=== PATIENT | male | born 1975 | race Caucasian/White ===

== ENCOUNTER 2016-10-07 12:16 | Emergency (ER) | payer MEDICAID ==
[~2016-10-07] VITALS: Ht 170.2 cm; Wt 72.6 kg
--- NOTE | 2016-10-07 12:22 | NUR ---
PT DREA ACCOMPANIED BY PD TO ER BED 09. C/O HALLUCINATION AND SI. PLAN OF SHOOTING AIR INTO HIS VEINS.ADMITS TO USING LSD. 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 DENIES PAIN. PT IS VERBALLY RESPONSIVE AND COOPERATIVE. PLACED ON MONITOR. PLACED ON SI PRECAUTION.
--- NOTE | 2016-10-07 12:24 | NUR ---
DR DEL CASTILLO AT BEDSIDE FOR EVAL.
[2016-10-07] MEDS: IV NS 0.9% 1,000 ML BAG IV ONE (12:33)
[2016-10-07 12:36] LABS: BASOPHILS # (AUTO) 0.5 /CMM (0.0-0.2); BASOPHILS % (AUTO) 3.4 % (0.0-2.0); EOSINOPHILS % (AUTO) 0.1 % (0.0-6.0); HEMATOCRIT 47 % (39-51); HEMOGLOBIN 15.6 g/dL (13.5-17.5); LYMPHOCYTES # (AUTO) 1.8 /CMM (0.8-4.8); LYMPHOCYTES % (AUTO) 11.6 % (20.0-44.0); MEAN CORPUSCULAR HEMOGLOBIN 28 PG (26.0-33.0); MEAN CORPUSCULAR HGB CONC 33 g/dl (31.0-36.0); MEAN CORPUSCULAR VOLUME 86 fL (80-96); MONOCYTES # (AUTO) 1.3 /CMM (0.1-1.30); MONOCYTES % (AUTO) 8.7 % (2.0-12.0); NEUTROPHILS # (AUTO) 11.9 /CMM (1.8-8.9); NEUTROPHILS % (AUTO) 76.2 % (43.0-81.0); PLATELET COUNT (AUTO) 233 /CMM (150-450); RDW COEFFICIENT OF VARIATION 14.2 (11.5-15.0); RED BLOOD CELL COUNT(AUTO) 5.48 MIL/uL (4.5-6.0); WHITE BLOOD COUNT (AUTO) 15.5 K/uL (4.3-11.0)
[2016-10-07 12:39] LABS: CARBON DIOXIDE 26 mmol/L (21-32); CHLORIDE 101 mmol/L (98-107); GLUCOSE 97 mg/dL (74-106); SODIUM SERUM 138 mmol/L (136-145)
[2016-10-07 12:40] LABS: ALCOHOL, BLOOD < 3 mg/dL (0-0)
[2016-10-07 12:45] LABS: UREA NITROGEN, BLOOD 23 mg/dL (7-18)
--- NOTE | 2016-10-07 13:00 | NUR ---
CALLED CLINICIAN FOR EVAL OF PT
--- NOTE | 2016-10-07 13:59 | NUR ---
ART CORPORATE DIRECTOR AT BEDSIDE FOR EVAL.
[2016-10-07 14:05] VITALS: BP 138/101
--- NOTE | 2016-10-07 14:20 | NUR ---
PT RESTING IN BED. ON MONITOR. STILL UNABLE TO PROVIDED URINE SAMPLE. URINAL PROVIDED.
--- NOTE | 2016-10-07 14:32 | NUR ---
UNABLE TO URINATE. PT AGREED TO AN IN AND OUT CATH. URINE SPECIMEN COLLECTED AND SENT TO LAB.
--- NOTE | 2016-10-07 16:20 | NUR ---
PT NOT AT HIS BED. POSSIBLE ELOPEMENT.
--- NOTE | 2016-10-07 16:53 | NUR ---
CALLED [facility] AND SPOKE WITH CHIEF HYDROELECTRIC STATION OPERATOR [phone] TO REPORT PT ELOPEMENT WITH IV IN HIS RIGHT FOREARM. THEY WILL DISPATCH A UNIT.
== END 2016-10-07 18:39 | disposition left against medical advice (07) ==
LOC: ER 12:18
DX: F24 Shared psychotic disorder (principal); K21.9 Gastro-esophageal reflux disease without esophagitis
CPT/HCPCS: 36415; 80048-TC; 80305; 85025-TC; A4606; G0480; J7030; Z7610